=== PATIENT | female | born 1980 | race Caucasian/White ===

== ENCOUNTER 2022-01-31 11:09 | Emergency (ER) | payer OTHER ==
[2022-01-31 11:15] VITALS: PULSE 95; RESP 16
[2022-01-31 11:38] VITALS: BP 174/94; TEMP 98.5
[2022-01-31] MEDS ORDERED: LORazepam 1 MG TAB PO STA (11:41)
--- NOTE | 2022-01-31 11:47 | ED ---
Psych HPI - General Chief Complaint: Psychiatric Symptoms Stated Complaint: Mental Health Time Seen by Provider: 01/31/22 11:19 Source: patient, RN notes reviewed Mode of arrival: ambulatory - History of Present Illness Initial Comments: This is a 41-year-old female who presents to the emergency department for drug withdrawals. Patient states that she usually uses meth, cocaine, and heroin. She has not used these substances in 2 days, and states that she feels like everyone is out to get her. She was on a bus trip from [place] yesterday, and states that she had to keep getting off the bus because she felt like people were going to harm her. She overall feels very scared. She used to take either methadone or Suboxone when stopping the substances, however she states that she does not want to do this, and wants to stop these completely. She is unable to get into [facility] until February 17, and does not want to go anywhere else for rehab. She wants to be somewhere where she can be watched very closely until then so she does not relapse. Denies any suicidal or homicidal ideations. She requests something to help her sleep, states that she has not been able to sleep in 4 days. Patient requests pain medication for her hernia. States that this has been there for years but she has never had it evaluated. When she was on the illicit substances, she didn't notice the pain. I examined the patient and did find her to have a very large ventral hernia. Denies any fevers, chills, sore throat, cough, dyspnea, chest pain, palpitations, abdominal pain, nausea, vomiting, diarrhea, back pain, or headaches. Complaint: other (Paranoia due to drug withdrawals) Context: recent drug abuse - Related Data Home Medications Medication Instructions Recorded Confirmed ARIPiprazole [Abilify] 2 mg PO HS 01/13/14 01/31/22 Sertraline HCl [Zoloft] 200 mg PO HS 01/13/14 01/31/22 Allergies Allergy/AdvReac Type Severity Reaction Status Date / Time No Known Allergies Allergy Verified 01/31/22 13:33 Review of Systems ROS Statement: Those systems with pertinent positive or pertinent negative responses have been documented in the HPI. ROS Other: All systems not noted in ROS Statement are negative. Past Medical History Additional Past Medical History / Comment(s): anxiety, depression, heroin abuse History of Any Multi-Drug Resistant Organisms: None Reported Past Surgical History: Adenoidectomy, Tonsillectomy Additional Past Surgical History / Comment(s): gastric bypass, breast augmentation Past Psychological History: Anxiety, Depression Smoking Status: Current every day smoker Past Alcohol Use History: Daily Past Drug Use History: Cocaine, Heroin, Methamphetamine General Exam Limitations: no limitations General appearance: alert, in distress Respiratory exam: Present: normal lung sounds bilaterally. Absent: respiratory distress, wheezes, rales, rhonchi, stridor Cardiovascular Exam: Present: regular rate, normal rhythm, normal heart sounds. Absent: systolic murmur, diastolic murmur, rubs, gallop, clicks GI/Abdominal exam: Present: hernia (reducible ventral hernia) Neurological exam: Present: alert, oriented X3, CN II-XII intact Psychiatric exam: Present: agitated Skin exam: Present: warm, dry, intact, normal color. Absent: rash Course Vital Signs 01/31/22 01/31/22 11:12 11:35 Temperature 98.2 F 98.5 F Pulse Rate 95 95 Respiratory 16 16 Rate Blood Pressure 167/109 174/94 O2 Sat by Pulse 100 99 Oximetry Medical Decision Making - Medical Decision Making This is a 41-year-old female who presents to the emergency department for paranoid thoughts associated with drug withdrawal. Patient given 1 dose of Ativan to help her sleep. Patient also complaining of pain associated with a hernia. States that because she was on illicit substances for so long she didn't really notice the pain. Order for IM Toradol provided, advised that I'm not willing to prescribe narcotics because of her history and desire to stay off of them. Haldol and Benadryl provided as well for psychiatric concerns and to help the patient sleep. EPS evaluated the patient, who did not identify any reason to admit her to the psychiatric floor and she was cleared from their perspective. She did look into dual diagnoses treatment facilities, however they will not accept her insurance, which is Medicaid. EPS reiterated with the patient that the psychiatric floor is not a detox facility. We are not able to control her use of substances upon discharge, however we stressed the importance of her trying to continue avoiding them, and following through with [facility] on February 17. Patient was discharged by [facility]. - Lab Data Lab Results 01/31/22 Range/Units 11:20 Urine Opiates Screen Detected H (NotDetected) Ur Oxycodone Screen Not Detected (NotDetected) Urine Methadone Screen Not Detected (NotDetected) Ur Propoxyphene Screen Not Detected (NotDetected) Ur Barbiturates Screen Not Detected (NotDetected) U Tricyclic Antidepress Not Detected (NotDetected) Ur Phencyclidine Scrn Not Detected (NotDetected) Ur Amphetamines Screen Detected H (NotDetected) U Methamphetamines Scrn Detected H (NotDetected) U Benzodiazepines Scrn Not Detected (NotDetected) Urine Cocaine Screen Detected H (NotDetected) U Marijuana (THC) Screen Not Detected (NotDetected) Disposition Clinical Impression: Drug withdrawal Disposition: HOME SELF-CARE Instructions (If sedation given, give patient instructions): Methamphetamine Abuse (ED), Polysubstance Abuse (ED), Opioid Withdrawal (ED) Additional Instructions: Return to the emergency department with any new, worsening, or concerning symptoms. Continue to avoid using substances and follow through with your plans to attend [facility]. Is patient prescribed a controlled substance at d/c from ED?: No Referrals: Nonstaff,Physician [Primary Care Provider] - 1-2 days
[2022-01-31 11:58] LABS: Amphetamine Screen,Urine Detected (NotDetected); Barbiturate Screen,Urine Not Detected (NotDetected); Benzodiazepines Screen,Urine Not Detected (NotDetected); Cocaine Screen,Urine Detected (NotDetected); Methadone Screen, Urine Not Detected (NotDetected); Opiate Screen,Urine Detected (NotDetected); Oxycodone Screen, Urine Not Detected (NotDetected); Phencyclidine Screen,Urine Not Detected (NotDetected); Tricyclic Antidepressant,Urine Not Detected (NotDetected); Urn Cannabinoid Scrn Not Detected (NotDetected)
[2022-01-31] MEDS ORDERED: KETOROLAC 15 MG/ML 1 ML VIAL IM STA (12:08)
[2022-01-31] MEDS ORDERED: NICOTINE 14MG/24HR PATCH TRANSDERM STA (12:23)
[2022-01-31] MEDS ORDERED: diphenhydrAMINE 50 MG CAP PO STA (13:07)
== END 2022-01-31 15:13 | disposition home or self-care (01) ==
LOC: EC 11:09
DX: F19.239 Other psychoactive substance dependence with withdrawal, unspecified (principal); F17.200 Nicotine dependence, unspecified, uncomplicated
CPT/HCPCS: 82075; 80306; 99284; S4990; J1885